=== PATIENT | male | born 1995 ===

== ENCOUNTER 2019-07-25 12:13 | Emergency (ER) | payer SELFPAY | END 2019-07-25 12:40 | disposition home or self-care (01) | LOC: ERS 12:13 | DX: J02.9 Acute pharyngitis, unspecified (principal); F90.9 Attention-deficit hyperactivity disorder, unspecified type; F17.210 Nicotine dependence, cigarettes, uncomplicated | CPT/HCPCS: 99282 ==

== ENCOUNTER 2020-05-10 10:57 | Emergency (ER) | payer SELFPAY | END 2020-05-10 11:57 | disposition left against medical advice (07) | LOC: ERS 10:57 | DX: Z53.21 Procedure and treatment not carried out due to patient leaving prior to being seen by health care provider (principal) ==

== ENCOUNTER 2022-05-24 17:36 | Emergency (ER) | payer MEDICAID, SELFPAY | END 2022-05-24 18:02 | disposition home or self-care (01) | LOC: ERS 17:36 | DX: B34.9 Viral infection, unspecified (principal); F17.210 Nicotine dependence, cigarettes, uncomplicated; Z20.822 Contact with and (suspected) exposure to COVID-19 | CPT/HCPCS: 99283; U0003; U0005 ==

== ENCOUNTER 2023-05-11 15:49 | Emergency (ER) | payer OTHER, SELFPAY | END 2023-05-11 16:55 | disposition home or self-care (01) | LOC: ERS 15:49 | DX: Z03.89 Encounter for observation for other suspected diseases and conditions ruled out (principal); F17.210 Nicotine dependence, cigarettes, uncomplicated | CPT/HCPCS: 99282 ==